=== PATIENT | male | born 1960 | race Caucasian/White ===

== ENCOUNTER 2024-06-01 07:45 | Day surgery (SDC) | payer MEDICARE ==
[~2024-06-01] VITALS: Ht 190.5 cm; Wt 125.2 kg
[~2024-06-01 07:45] MED LIST: BREO1INH INH; BUDE10.7; CALC600T60 PO; ELIQ5TAB PO; HYDR12.55 PO; LOSA50TA28 PO; METF10004 PO; MULTTAB61 PO; PROA1AER2 IN; RA M500C PO; SILD100T; TROS20TA3 PO
[2024-06-01] MEDS ORDERED: LR 1,000 ML IV SCH ×2 (08:50→10:50)
[2024-06-01] MEDS ORDERED: ONDANSETRON 4MG 2ML VIAL As Ordered ONE (09:04)
[2024-06-01] MEDS ORDERED: fentaNYL 100 MCG/2 ML INJECTION As Ordered ONE (09:04)
[2024-06-01] MEDS ORDERED: LIDOCAINE 2% 100MG/5ML SDV (FOR ANES.) As Ordered ONE (09:04)
[2024-06-01] MEDS ORDERED: MIDAZOLAM INJ 2MG/2ML VIAL As Ordered ONE (09:04)
[2024-06-01] MEDS ORDERED: ACETAMINOPHEN 1000MG 100ML IV BAG As Ordered ONE (09:04)
[2024-06-01] MEDS ORDERED: ROCURONIUM BROMIDE 50MG/5ML VIAL As Ordered ONE (09:04)
[2024-06-01] MEDS ORDERED: propofoL 200 MG/20 ML VIAL As Ordered ONE (09:04)
[2024-06-01] MEDS ORDERED: SUGAMMADEX SODIUM 500 MG/5 ML VIAL (BRIDION) As Ordered ONE (09:04)
[2024-06-01] MEDS: OXYMETAZOLINE 0.05% NASAL SPRAY (AFRIN) As Ordered ONE (10:18)
[2024-06-01] MEDS: LIDOCAINE W/EPINEPHRINE 1% 20ML VIAL As Ordered ONE (10:30)
[2024-06-01] MEDS ORDERED: oxyCODONE 5MG TAB PO PRN (10:50)
[2024-06-01] MEDS ORDERED: HYDROMORPHONE HCL 0.5 MG/ 0.5 ML SYRINGE IV PRN (10:50)
[2024-06-01] MEDS ORDERED: fentaNYL 100 MCG/2 ML INJECTION IV PRN (10:50)
[2024-06-01] MEDS ORDERED: ONDANSETRON 4MG 2ML VIAL IV PRN (10:50)
[2024-06-01 11:35] VITALS: BP 135/72; TEMP 97; O2SAT 93
== END 2024-06-01 12:19 | disposition home or self-care (01) ==
LOC: M SDC 07:45
PROVIDERS: ATTEND Dentist Oral and Maxillofacial Surgery
DX: K02.9 Dental caries, unspecified (principal); E11.9 Type 2 diabetes mellitus without complications; G47.30 Sleep apnea, unspecified; Z79.899 Other long term (current) drug therapy; Z87.891 Personal history of nicotine dependence
CPT/HCPCS: 41899; 88300; J0131; J2250; J2405; J3010